=== PATIENT | female | born 1965 | race Caucasian/White ===

== ENCOUNTER 2017-04-07 20:37 | Emergency (ER) | payer SELFPAY ==
[2017-04-07 20:40] VITALS: BP 121/82; PULSE 76; TEMP 98.1; BMI 18.0
--- NOTE | 2017-04-07 21:06 | PDOC ---
History of Present Illness - History of Present Illness Initial Comments: 04/07/17 21:23 Patient is a 52 year old female who is presenting to the ED with complaint of lightheadedness and history of vaginal bleeding secondary to fibroid bleeding. The patient states that in the past her hemoglobin has dropped to 7 and she's received iron transfusions. She has been feeling lightheaded today and came in for evaluation. Early on in the interview, it was said that the patient's vitals were normal, and she became upset and agitated and stated that no one took her vitals. However, discussion with the patient's nurse revealed that her vitals were taken and it was witnessed by another nurse. The vitals recorded on the machine which took them reflect the same vitals that were placed in the chart. The interview was not completed and exam not performed. PAST MEDICAL HISTORY: anemia, fibroids PAST SURGICAL HISTORY: no significant history FAMILY HISTORY: no pertinent history SOCIAL HISTORY: Pt lives with family and is employed. MEDICATIONS: reviewed ALLERGIES: As per nursing notes General: No fevers or chills, no weakness, no weight loss HEENT: No change in vision. No sore throat,. No ear pain CardioVascular: Lightheadedness. No chest pain or shortness of breath Respiratory:No cough, or wheezing. Gastrointestinal: no nausea, vomiting, diarrhea or constipation, No rectal bleeding Genitourinary: Vaginal bleeding. No dysuria, hematuria, or frequency Musculoskeletal: No joint or muscle pain or swelling Neurologic: No headache, vertigo, or loss of consciousness Psychiatric: nor depression Skin: No rashes or easy bruising Endocrine: no increased thirst or abnormal weight change Allergic: no skin or latex allergy All other systems reviewed and normal Physical exam not performed. <Nena Daniel - Last Filed: 04/07/17 21:21> - General History Source: Patient Exam Limitations: No Limitations (2) - History of Present Illness Initial Comments: 04/08/17 00:26 A portion of this note was documented by scribe services under my direction. I have reviewed the details of the note, within reason, and agree with the documentation. The case summary and management plan written by me. Assessment and plan: This is a 52-year-old female who came in complaining of feeling lightheaded secondary to heavy vaginal bleeding. Patient became upset and angry when I suggested that her vitals were fine on the time she got to the emergency room. Patient was adamant that her vitals were not done however the nurse was witnessed doing her vitals by another nurse and the vitals were also recorded on the automatic machine that does the vitals. Patient refused any further treatment and walked out of the emergency room <Eduin De La Torre I - Last Filed: 04/08/17 00:28> - General Chief Complaint: Lightheaded Stated Complaint: LIGHT HEADED/HEAVY VAG BLEEDING Time Seen by Provider: 04/07/17 20:49 Past History <Nena Daniel - Last Filed: 04/07/17 21:21> - Past Medical History Anemia: Yes Disorders: Yes (FIBROIDS) - Psycho/Social/Smoking Cessation Hx Anxiety: No Suicidal Ideation: No Smoking History: Never smoked Have you smoked in the past 12 months: No Number of Cigarettes Smoked Daily: 0 Hx Alcohol Use: No Drug/Substance Use Hx: No Substance Use Type: None <Eduin De La Torre I - Last Filed: 04/08/17 00:28> - Past Medical History Allergies/Adverse Reactions: Allergies Allergy/AdvReac Type Severity Reaction Status Date / Time No Known Allergies Allergy Unverified 08/25/16 23:55 Home Medications: Ambulatory Orders NK [No Known Home Medication] 04/07/17 *Physical Exam - Vital Signs Last Vital Signs Temp Pulse Resp BP Pulse Ox 98.1 F 76 16 121/82 97 04/07/17 20:39 04/07/17 20:39 04/07/17 20:39 04/07/17 20:39 04/07/17 20:39 <Nena Daniel - Last Filed: 04/07/17 21:21> - Vital Signs Last Vital Signs Temp Pulse Resp BP Pulse Ox 98.1 F 76 16 121/82 97 04/07/17 20:39 04/07/17 20:39 04/07/17 20:39 04/07/17 20:39 04/07/17 20:39 <Eduin De La Torre I - Last Filed: 04/08/17 00:28> *DC/Admit/Observation/Transfer - Attestations Scribe Attestion: 04/07/17 21:30 Documentation prepared by Nena Daniel, acting as medical aides teacher for Eduin De La Torre MD. <Nena Daniel - Last Filed: 04/07/17 21:21> <Eduin De La Torre I - Last Filed: 04/08/17 00:28> Diagnosis at time of Disposition: Eloped - Discharge Dispostion Disposition: ELOPED Condition at time of disposition: Stable
[2017-04-07] MEDS ORDERED: SODIUM CHLORIDE 1,000 ML IV ONE (21:07)
== END 2017-04-07 21:28 | disposition left against medical advice (07) ==
LOC: FER 20:37
DX: Z53.21 Procedure and treatment not carried out due to patient leaving prior to being seen by health care provider (principal)
CPT/HCPCS: 99282-25

== ENCOUNTER 2017-10-29 14:28 | Emergency (ER) | payer OTHER ==
--- NOTE | 2017-10-29 14:35 | PDOC ---
History of Present Illness - General History Source: Patient Exam Limitations: No Limitations - History of Present Illness Initial Comments: 10/29/17 14:59 The patient is a 52 year old woman with past medical history of fibroids s/p hysterectomy who presents to the ED with complaints of vaginal itching and pain that began a few days ago. The patient states she was having sexual intercourse with her and noticed her vagina to be very dry and itchy. Over the next few days she noticed her symptoms to become worse and began to experience pain along with it. The patient denies any fever or chills. She denies any foul smelling or odd colored discharge. <Kimberley Kline - Last Filed: 10/29/17 14:59> <Nia Benoit - Last Filed: 10/29/17 17:40> - General Chief Complaint: Vaginal Sxs Stated Complaint: VAGINAL PAIN Time Seen by Provider: 10/29/17 14:35 Past History <Kimberley Kline - Last Filed: 10/29/17 14:59> - Past Medical History Anemia: Yes Disorders: Yes (FIBROIDS) - Suicide/Smoking/Psychosocial Hx Smoking History: Never smoked Have you smoked in the past 12 months: No Number of Cigarettes Smoked Daily: 0 Hx Alcohol Use: No Drug/Substance Use Hx: No Substance Use Type: None <Nia Benoit - Last Filed: 10/29/17 17:40> - Past Medical History Allergies/Adverse Reactions: Allergies Allergy/AdvReac Type Severity Reaction Status Date / Time No Known Allergies Allergy Verified 10/29/17 14:29 Home Medications: Ambulatory Orders Fluconazole [Diflucan] 150 mg PO ONCE #1 tablet 10/29/17 Review of Systems - Review of Systems Able to Perform ROS?: Yes Comments:: 10/29/17 14:59 GENERAL/CONSTITUTIONAL: No fever or chills. No weakness. HEAD, EYES, EARS, NOSE AND THROAT: No change in vision. No ear pain or discharge. No sore throat. CARDIOVASCULAR: No chest pain or shortness of breath. RESPIRATORY: No cough, wheezing, or hemoptysis. GASTROINTESTINAL: No nausea, vomiting, diarrhea or constipation. GENITOURINARY: Present: vaginal dryness and pain No dysuria, frequency, or change in urination. MUSCULOSKELETAL: No joint or muscle swelling or pain. No neck or back pain. SKIN: No rash NEUROLOGIC: No headache, vertigo, loss of consciousness, or change in strength/ sensation. ENDOCRINE: No increased thirst. No abnormal weight change. HEMATOLOGIC/LYMPHATIC: No anemia, easy bleeding, or history of blood clots. ALLERGIC/IMMUNOLOGIC: No hives or skin allergy. All Other Systems: Reviewed and Negative <Kimberley Kline - Last Filed: 10/29/17 14:59> *Physical Exam - Vital Signs Last Vital Signs Temp Pulse Resp BP Pulse Ox 98 F 69 20 123/87 97 10/29/17 14:28 10/29/17 14:28 10/29/17 14:28 10/29/17 14:28 10/29/17 14:28 - Physical Exam Comments: 10/29/17 15:00 <Kimberley Kline - Last Filed: 10/29/17 14:59> - Physical Exam Comments: GENERAL: Awake, alert, and fully oriented, in no acute distress HEAD: No signs of trauma EYES: PERRLA, EOMI, sclera anicteric, conjunctiva clear ENT: Auricles normal inspection, hearing grossly normal, nares patent, oropharynx clear without exudates. Moist mucosa NECK: Normal ROM, supple, no lymphadenopathy, JVD, or masses LUNGS: Breath sounds equal, clear to auscultation bilaterally. No wheezes, and no crackles HEART: Regular rate and rhythm, normal S1 and S2, no murmurs, rubs or gallops ABDOMEN: Soft, nontender, normoactive bowel sounds. No guarding, no rebound. No masses EXTREMITIES: Normal range of motion, no edema. No clubbing or cyanosis. No cords, erythema, or tenderness NEUROLOGICAL: Cranial nerves II through XII grossly intact. Normal speech, normal gait SKIN: Warm, Dry, normal turgor, no rashes or lesions noted. : No external lesions. +Small petechial rash to anterior vaginal wall. +Blood- tinged physiologic discharge. <Nia Benoit - Last Filed: 10/29/17 17:40> Medical Decision Making - Medical Decision Making Exam is consistent with history of sexual encounter and inadequate lubrication. No signs of severe injury, just the rash noted to the anterior vaginal wall, which would be an expected outcome of the above. No signs of yeast infection at present, however, she has noted some itching. Counseled her to fill rx for diflucan only if she develops cottage cheese discharge or worsening itching. Stable for DC home. <Nia Benoit - Last Filed: 10/29/17 17:40> *DC/Admit/Observation/Transfer - Attestations Scribe Attestion: 10/29/17 15:00 Documentation prepared by Kimberley Kline, acting as medical office secretary for Nia Benoit MD. <Kimberley Kline - Last Filed: 10/29/17 14:59> - Discharge Dispostion Admit: No <Nia Benoit - Last Filed: 10/29/17 17:40> Diagnosis at time of Disposition: Vaginal abrasion Qualifiers: Encounter type: initial encounter Qualified Code(s): S30.814A - Abrasion of vagina and vulva, initial encounter - Discharge Dispostion Disposition: HOME Condition at time of disposition: Stable - Prescriptions Prescriptions: Fluconazole [Diflucan] 150 mg PO ONCE #1 tablet - Patient Instructions Printed Discharge Instructions: Sexual Lubricants: Relieving Vaginal Dryness Additional Instructions: If itching continues, please fill prescription for diflucan. It is a one-time dose.
[2017-10-29 14:49] VITALS: BP 123/87; PULSE 69; TEMP 98; BMI 18.0
== END 2017-10-29 15:02 | disposition home or self-care (01) ==
LOC: FER 14:28
DX: S30.814A Abrasion of vagina and vulva, initial encounter (principal); X58.XXXA Exposure to other specified factors, initial encounter; Y93.89 Activity, other specified; Y92.9 Unspecified place or not applicable; D64.9 Anemia, unspecified
CPT/HCPCS: 99281-25